=== PATIENT | female | born 1980 | race Caucasian/White ===

== ENCOUNTER 2019-10-22 01:16 | Emergency (ER) | payer MEDICAID ==
[~2019-10-22] VITALS: Ht 167.6 cm; Wt 63.5 kg
[2019-10-22 01:20] VITALS: BP_SYST 157
--- NOTE | 2019-10-22 01:20 | NUR ---
Pt wheeled to bed 8 for evaluation
--- NOTE | 2019-10-22 01:46 | NUR ---
ER at bedside examining patient.
[2019-10-22] MEDS ORDERED: MORPHINE 4 MG/ML INJ. SYRINGE IVP ONE (02:15)
[2019-10-22] MEDS ORDERED: ONDANSETRON HCL 4 MG/2 ML VIAL IVP ONE (02:15)
[2019-10-22 02:24] LABS: BILIRUBIN,URINE NEGATIVE (NEGATIVE); BLOOD, URINE NEGATIVE (NEGATIVE); CLARITY/URINE CLEAR (CLEAR); COLOR,URINE YELLOW (YELLOW); GLUCOSE,URINE NEGATIVE (NEGATIVE); KETONES,URINE NEGATIVE (NEGATIVE); LEUKOCYTE ESTERASE ,URINE TRACE (NEGATIVE); NITRITE, URINE NEGATIVE (NEGATIVE); PH,URINE 6.5 (5.0-8.0); PROTEIN URINE NEGATIVE (NEGATIVE)
--- NOTE | 2019-10-22 02:25 | NUR ---
# 20 gauge angiocath placed to [facility]. Use of asceptic technique. Opsite placed over site. Blood return noted. Blood for lab drawn from site. Flushed with 10 cc of normal saline. No evidence of infiltration noted. Patient tolerated well.
[2019-10-22] MEDS ORDERED: ONDANSETRON HCL 4 MG/2 ML VIAL ONE (02:28)
--- NOTE | 2019-10-22 02:36 | NUR ---
Pt to CT via stretcher in stable condition.
[2019-10-22 02:43] LABS: BACTERIA,URINE FEW /HPF (None Seen); RBC,URINE 0-3 /HPF (0-3)
[2019-10-22 02:56] LABS: BASOPHILS # (AUTO) 0.1 K/uL (0.0-0.2); BASOPHILS % (AUTO) 0.8 % (0.0-2.0); EOSINOPHILS # (AUTO) 0.1 K/uL (0.0-0.4); EOSINOPHILS % (AUTO) 0.7 % (0.0-4.0); HEMATOCRIT 41.4 % (36-48); HEMOGLOBIN 14.1 g/dL (12.0-16.0); LYMPHOCYTES # (AUTO) 1.9 K/uL (1.0-5.5); LYMPHOCYTES % (AUTO) 17.3 % (20.5-51.5); MEAN CORPUSCULAR HEMOGLOBIN 31 pg (27-31); MEAN CORPUSCULAR HGB CONC 34 % (32-36); MEAN CORPUSCULAR VOLUME 90 fL (79.0-98.0); MONOCYTES # (AUTO) 0.6 K/uL (0.0-1.0); NEUTROPHILS # (AUTO) 8.5 K/uL (1.8-7.7); NEUTROPHILS % (AUTO) 76.2 % (40.0-70.0); PLATELET COUNT (AUTO) 351 K/uL (130-430); RED BLOOD CELL COUNT(AUTO) 4.62 MIL/uL (4.2-6.2); RED CELL DISTRIBUTION WIDTH 12.4 % (9.0-15.0); WHITE BLOOD COUNT (AUTO) 11.2 K/uL (4.8-10.8)
[2019-10-22 03:00] VITALS: BP_SYST 179
[2019-10-22] MEDS ORDERED: DIPHENHYDRAMINE INJ 50 MG/ML VIAL IVP ONE (03:00)
--- NOTE | 2019-10-22 03:00 | NUR ---
Pt returns from CT. Pt c/o generalized itching and actively scratching arms and chest. Airway patent, even and non-labored respirations, BBS clear. B/P 135/86, P 67, R 18, SPO2 100%, T 98.9. Dr. Gustafson made aware.
[2019-10-22 03:08] LABS: CALCIUM 9.3 mg/dL (8.4-11.0); CREATININE 0.82 mg/dL (0.55-1.30); POTASSIUM 3.6 mmol/L (3.5-5.1)
[2019-10-22 03:13] LABS: ALBUMIN 4.1 g/dL (3.4-4.8); TOTAL BILIRUBIN 0.7 mg/dL (0.0-1.0)
[2019-10-22] MEDS ORDERED: cefTRIAXone 1 GM in D5W 50 ML IV ONE (03:30)
--- NOTE | 2019-10-22 03:30 | NUR ---
Rash and itching resolved. Airway patent, no SOB, NAD, VSS.
--- NOTE | 2019-10-22 03:53 | NUR ---
Pt requests more pain medication. Dr. Gustafson notified.
[2019-10-22] MEDS ORDERED: cefTRIAXone 1 GM VIAL ONE (05:10)
[2019-10-22] MEDS ORDERED: LIDOCAINE 1% 10 MG/ML, 20 ML MDV INJ ONE (05:15)
[2019-10-22] MEDS ORDERED: cefTRIAXone 1 GM in LIDOCAINE 1%, 20 ML MDV 2.1 ML IM ONE (05:15)
[2019-10-22] MEDS ORDERED: KETOROLAC TROMETHAMINE 30 MG VIAL IM ONE (05:15)
[2019-10-22] MEDS ORDERED: LIDOCAINE 1%, 20 ML MDV 20 ML ONE (05:24)
== END 2019-10-22 05:43 | disposition left against medical advice (07) ==
LOC: SED 01:16
DX: N20.0 Calculus of kidney (principal); N39.0 Urinary tract infection, site not specified
CPT/HCPCS: 36415; 70450; 74176; 80053; 81000; 81025; 85025; 87086; 96374; 96375; 99285; J0696; J1200; J1885; J2001; J2270; J2405